=== PATIENT | female | born 1975 | race Caucasian/White ===

== ENCOUNTER → 2020-01-31 15:49 | Outpatient (CLI) | payer OTHER, SELFPAY ==
--- NOTE | ~2020-01-31 | MM_ITS ---
EXAMINATION: MM screening jennifer BI w manjinder HISTORY: Screening TECHNIQUE: Craniocaudal and mediolateral oblique 3-D tomosynthesis images were obtained and synthetic 2-D images were generated. CAD analysis was submitted and interpreted. COMPARISON: Comparison to multiple prior studies sequentially, with oldest reviewed study dated 11/22. BREAST PARENCHYMAL COMPOSITION: The breasts are extremely dense, which lowers the sensitivity of mamm ography. FINDINGS: There are clustered indeterminate calcifications upper aspect of the right breast posterior ly, seen on MLO view only. The left breast is stable without evidence for malignancy. IMPRESSION: 1. Clustered indeterminate right breast calcifications, seen on MLO view only. 2. Magnification views are recommended. BI-RADS Category 0: Incomplete: Needs additional imaging evaluation. Reviewed, dictated and finalized at location A. ER
== END ==
PROVIDERS: PCP Nurse Practitioner Family; Visit Provider Obstetrics & Gynecology
DX: Z12.31 Encounter for screening mammogram for malignant neoplasm of breast (principal); R92.8 Other abnormal and inconclusive findings on diagnostic imaging of breast
CPT/HCPCS: 77063; 77067

== ENCOUNTER → 2020-02-27 10:05 | Outpatient (CLI) | payer OTHER, SELFPAY ==
--- NOTE | ~2020-02-27 | MM_ITS ---
EXAMINATION: MM diagnostic mammo unilat RT HISTORY: Indeterminate right breast calcifications on screening mammogram TECHNIQUE: Additional images of the right breast were performed. CAD analysis was submitted and inter preted. COMPARISON: 01/31/2020, 01/08/2019,01/04/2018, 12/17/2016 FINDINGS: There are grouped, punctate calcifications in the posterior third of the breast at the 12:0 0 location 7 cm from the nipple which appear to be round in morphology. No suspicious mass or archite ctural distortion are identified. IMPRESSION: 1. Probably benign right breast calcifications. 2. Recommend 6 month follow-up right diagnostic mammogram BI-RADS category 3, probably benign findings. Reviewed, dictated and finalized at location A. SH PRODUCTION MANAGER
== END ==
PROVIDERS: Visit Provider Obstetrics & Gynecology
DX: R92.8 Other abnormal and inconclusive findings on diagnostic imaging of breast (principal)
CPT/HCPCS: 77065

== ENCOUNTER → 2020-09-08 08:55 | Outpatient (CLI) | payer OTHER, SELFPAY ==
--- NOTE | ~2020-09-08 | MM_ITS ---
EXAMINATION: MM diagnostic jennifer RT w manjinder HISTORY: Follow-up right breast calcifications TECHNIQUE: Additional 3-D tomosynthesis images of the right breast in were performed and synthetic 2- D images were generated. CAD analysis was submitted and interpreted. COMPARISON: Comparison to multiple prior studies sequentially, with oldest reviewed study dated 11/22. BREAST PARENCHYMAL COMPOSITION: The breasts are extremely dense, which lowers the sensitivity of mamm ography. FINDINGS: There are clustered indeterminate calcifications in the upper central aspect of the right b reast posteriorly which are slightly increased in number and density allowing for differences of tech nique. There are no discrete masses or architectural distortion. IMPRESSION: 1. Clustered indeterminate right breast calcifications, upper central aspect of the right breast post eriorly. 2. Stereotactic right breast biopsy recommended. BI-RADS category 4, suspicious findings. Reviewed, dictated and finalized at location A. IMPRESSION: 1. Clustered indeterminate right breast calcifications, upper central aspect of the right breast posteriorly. 2. Stereotactic right breast biopsy recommended. BI-RADS category 4, suspicious findings.
== END ==
PROVIDERS: Visit Provider Obstetrics & Gynecology
DX: R92.8 Other abnormal and inconclusive findings on diagnostic imaging of breast (principal)
CPT/HCPCS: 77061; 77065; G0279

== ENCOUNTER 2020-09-26 15:56 | Emergency (ER) | payer OTHER, SELFPAY ==
[2020-09-26 16:08] VITALS: BP 150/107; PULSE 91; RESP 16; TEMP 37.3; O2SAT 100
--- NOTE | 2020-09-26 16:24 | PC.NURSE ---
Pt is supposed to take Lisinopril 5mg Qd, has not been on for 4 months because she need to be seen before PCP will refill her Rx.
--- NOTE | 2020-09-26 17:22 | ED.WOUNDLAC ---
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 She cut her finger on a piece of glass in the sink as she was washing dishes. She is up-to-date on her tetanus vaccine and currently rates her pain 5/10. She has tried no [id number] interventions prior to arrival. Related Data Home Medications Medication Instructions Recorded Confirmed levonorgestrel [Mirena] 1 insert INTRAUTERINE ONCE 09/26/20 09/26/20 Allergies Allergy/AdvReac Type Severity Reaction Status Date / Time No Known Allergies Allergy Mild Verified 09/26/20 16:23 Review of Systems Review of Systems: CONSTITUTIONAL: Denies body aches, fever, chills, or sweats. EYES: Denies visual changes, redness, or discharge. ENT: Denies rhinorrhea, congestion, sore throat, or otalgia. CARDIOVASCULAR: Denies chest pain, palpitations, or edema. RESPIRATORY: Denies cough or dyspnea. GASTROINTESTINAL: Denies abdominal pain, nausea, vomiting, or diarrhea. GENITOURINARY: Denies dysuria or hematuria. SKIN: Denies rash, itching. + Left second finger laceration MUSCULOSKELETAL: Denies back pain, joint pain, or myalgia. NEUROLOGIC: Denies headache, numbness, tingling, or weakness. PSYCH: Denies depression or anxiety. [facility] Past Medical History Medical History (Updated 09/26/20 @ 17:34 by Kathleen Zamora, [facility], ) Hypertension Social History Social History Gender identity (if verbalized by the patient): Female Comments At time of signature, I have reviewed and agree with nursing past medical, surgical, social and family history unless otherwise noted. Please see nursing chart for further information. There is no relevant family history pertinent to the presenting complaint Exam Narrative: GENERAL: Well-appearing, well-nourished, and in no acute distress. HEAD: Normocephalic, atraumatic. EYES: EOMI. No redness or drainage. Conjunctivae normal. ENT: Mucous membranes pink and moist. NECK: Normal AROM. CHEST: No respiratory distress. EXTREMITIES: Left second finger: 2 cm full-thickness linear laceration to the dorsum of the finger, overlying the DIP. Full range of motion of the finger against resistance. Distal sensation intact. Capillary refill normal. SKIN: Warm, dry, no rash. Capillary refill normal. Normal skin turgor. NEURO: No focal deficits. Alert and oriented x3. Gait steady. PSYCH: Normal affect. No signs of depression or anxiety. Course Vital Signs Vital signs: Vital Signs Temperature 99.1 F 09/26/20 16:08 Pulse Rate 91 09/26/20 16:08 Respiratory Rate 16 09/26/20 16:08 Blood Pressure 150/107 H 09/26/20 16:08 Pulse Oximetry 100 09/26/20 16:08 Temperature 99.1 F 09/26/20 16:08 Pulse Rate 91 09/26/20 16:08 Respiratory Rate 16 09/26/20 16:08 Blood Pressure 150/107 H 09/26/20 16:08 Pulse Oximetry 100 09/26/20 16:08 Reviewed. Pt has been instructed to follow up with her PCP regarding her elevated blood pressure today. Procedures Laceration Laceration 1: Date: 09/26/20 Time: 17:23 Site: hand Side (If applicable): left Size (cm): 2 Description: linear Depth: simple, single layer Local Anesthetic: lidocaine 1% Amount of anesthesia used (mL): 2 Pre-repair: wound explored ====== Skin Level ====== Skin layer closed with: nylon Size (cm): 5-0 Number of sutures: 4 Technique: simple, interrupted ====== Subcutaneous Layer ====== ====== Muscle Layer ====== ====== Tendon Layer ====== Dressing: Splint and norma
== END 2020-09-26 17:38 | disposition home or self-care (01) ==
PROVIDERS: Emergency Provider Nurse Practitioner; PCP Nurse Practitioner Family
DX: S61.211A Laceration without foreign body of left index finger without damage to nail, initial encounter (principal); I10 Essential (primary) hypertension
CPT/HCPCS: 12001; 99212; G0463

== ENCOUNTER 2020-10-05 15:37 | Emergency (ER) | payer OTHER, SELFPAY ==
[2020-10-05 15:45] VITALS: BP 130/114; PULSE 74; RESP 16; TEMP 37.3; O2SAT 99
--- NOTE | 2020-10-05 15:53 | PC.NURSE ---
stated has appt. with pmd. has not had bp med. since june.
--- NOTE | 2020-10-05 16:01 | ED.WOUNDLAC ---
HPI - Wound/Laceration General Chief Complaint: Wound/Laceration Stated Complaint: Suture Removal,Ear Pain Time Seen by Provider: 10/05/20 16:01 Source: patient, RN notes reviewed and old records reviewed Mode of arrival: ambulatory Limitations: no limitations History of Present Illness HPI narrative: 45 year old female who presents to express care with complaints of some pain to her right ear which started yesterday. She is also her today in clinic to have sutures removed from her left dorsal index finger which were placed in this clinic on the of this month. Wound is well approximated with no gaping or any redness of wound, 4 sutures present.Patient also has history of hypertension with blood pressure elevated states that she is out of her blood pressure medication and can not get refilled till sees doctor in October Related Data Home Medications Medication Instructions Recorded Confirmed levonorgestrel [Mirena] 1 insert INTRAUTERINE ONCE 09/26/20 09/26/20 lisinopril 10/05/20 Allergies Allergy/AdvReac Type Severity Reaction Status Date / Time No Known Allergies Allergy Mild Verified 09/26/20 16:23 Review of Systems Review of Systems: CONSTITUTIONAL: Denies fever, chills, or sweats. EYES: Denies visual changes, redness, or discharge. ENT: Denies rhinorrhea, congestion, sore throat, positive for right eye otalgia. CARDIOVASCULAR: Denies chest pain, palpitations, or edema. RESPIRATORY: Denies cough or dyspnea. GASTROINTESTINAL: Denies abdominal pain, nausea, vomiting, or diarrhea. GENITOURINARY: Denies dysuria or hematuria. SKIN: Denies rash or itching.healed laceration to the dorsal aspect of left index finger. MUSCULOSKELETAL: Denies back pain, joint pain, or myalgia. NEUROLOGIC: Denies headache, numbness, or weakness. PSYCHIATRIC: Denies anxiety or depression. All systems reviewed & are unremarkable except as noted in HPI and below PMFSH Past Medical History Medical History (Updated 10/07/20 @ 19:56 by Radha Roberts NP) Hypertension Wears hearing aid in both ears Surgical History Surgical History (Updated 10/07/20 @ 19:47 by Radha Roberts NP) History of ear surgery X3 for her hearing loss Family History Family History (Updated 10/07/20 @ 19:48 by Radha Roberts NP) Mother Arthritis Hepatitis Sibling Hepatitis Social History Social History (Updated 10/07/20 @ 19:48 by Radha Roberts NP) Smoking status: Never smoker Alcohol intake: never Substance use: never Living arrangements: with family Gender identity (if verbalized by the patient): Female Comments At time of signature, agree with nursing past medical, surgical, social and family history. There is no relevant family history pertinent to the presenting complaint Exam Narrative: GENERAL: Well-appearing, well-nourished, and in no acute distress. HEAD: Normocephalic, atraumatic. EYES: PERRLA and EOMI. ENT: Nares clear, no rhinorrhea or epistaxis. Mucous membranes moist.Right TM normal with dull light reflex with ear canal red and irritated, Left Tm normal with dull light reflex, Throat pink with no lesions or exudates, no tonsil enlargement NECK: Supple.no lymphadenopathy CHEST: Clear to auscultation. No respiratory distress.SAO2 99% on room air HEART: Regular rate and rhythm. No murmur heard. Normal peripheral pulses. ABDOMEN: Soft, nontender, nondistended, normal active bowel sounds. EXTREMITIES: Normal range of motion. No edema. SKIN: Warm, dry, no rash.healed laceration to left dorsal index finger [address], to be removed see procedure note NEURO: No focal deficits. Alert and oriented x3. Course Vital Signs Vital signs: Vital Signs Temperature 37.3 C 10/05/20 15:45 Pulse Rate 74 10/05/20 15:45 Respiratory Rate 16 10/05/20 15:45 Blood Pressure 130/114 H 10/05/20 15:45 Pulse Oximetry 99 10/05/20 15:45 Temperature 37.3 C 10/05/20 15:45 Pulse Rate 74 10/05/20 15:4
[2020-10-05 16:32] VITALS: BP 148/103
--- NOTE | 2020-10-05 16:44 | PC.NURSE ---
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
== END 2020-10-05 16:32 | disposition home or self-care (01) ==
PROVIDERS: Emergency Provider Registered Nurse; PCP Nurse Practitioner Family
DX: H60.501 Unspecified acute noninfective otitis externa, right ear (principal); S61.211D Laceration without foreign body of left index finger without damage to nail, subsequent encounter; X58.XXXD Exposure to other specified factors, subsequent encounter; I10 Essential (primary) hypertension
CPT/HCPCS: 99213; G0463

== ENCOUNTER 2022-01-23 10:51 | Emergency (ER) | payer OTHER, SELFPAY ==
--- NOTE | ~2022-01-23 | XR_ITS ---
XR finger 3rd LT min 2V 01/23/2022 11:54 Indication: Laceration to left third distal phalanx. Procedure: 3 views left third finger Comparison: No prior studies for comparison. Findings: There is an overlying gauze superimposed on the distal phalanx. No fracture or traumatic ma lalignment is seen. No foreign bodies. Impression: 1: No acute fracture. Reviewed, dictated and finalized at location A. ORATE GENERAL MANAGER Impression: 1: No acute fracture.
[2022-01-23 11:15] VITALS: BP 139/85; PULSE 103; RESP 18; TEMP 36.4; O2SAT 100
--- NOTE | 2022-01-23 12:26 | ED.GENADULT ---
HPI - General Adult General Chief complaint: Wound/Laceration Stated complaint: finger tip laceration Time Seen by Provider: 01/23/22 11:55 History of Present Illness HPI narrative: 46-year-old female presenting to the emergency department for laceration to the tip of her left middle finger. 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 Patient is not on any blood thinners. Patient denies any other injuries. Related Data Home Medications Medication Instructions Recorded Confirmed levonorgestrel 20 mcg/24 hours (8 1 insert intrauterine ONCE 09/26/20 09/26/20 yrs) 52 mg intrauterine device (Mirena) lisinopril 5 mg tablet 10/05/20 Allergies Allergy/AdvReac Type Severity Reaction Status Date / Time No Known Allergies Allergy Mild Verified 01/23/22 11:15 Review of Systems Review of Systems: CONSTITUTIONAL: Denies fever, chills, or sweats. EYES: Denies visual changes, redness, or discharge. ENT: Denies rhinorrhea, congestion, sore throat, or otalgia. CARDIOVASCULAR: Denies chest pain, palpitations, or edema. RESPIRATORY: Denies cough or dyspnea. GASTROINTESTINAL: Denies abdominal pain, nausea, vomiting, or diarrhea. GENITOURINARY: Denies dysuria or hematuria. SKIN: See HPI MUSCULOSKELETAL: Denies back pain, joint pain, or myalgia. NEUROLOGIC: Denies headache, numbness, or weakness. PMFSH Past Medical History Medical History (Updated 01/23/22 @ 12:33 by Sg Zhu MD) Hypertension Wears hearing aid in both ears Surgical History Surgical History (Updated 10/07/20 @ 19:47 by Radha Roberts NP) History of ear surgery X3 for her hearing loss Family History Family History (Updated 10/07/20 @ 19:48 by Radha Roberts NP) Mother Arthritis Hepatitis Sibling Hepatitis Social History Social History (Updated 10/07/20 @ 19:48 by Radha Roberts NP) Smoking status: Never smoker Alcohol intake: never Substance use: never Gender identity (if verbalized by the patient): Female Exam Narrative: APPEARANCE: Well appearing, no pain, no distress, well-nourished. HEAD: normocephalic, atraumatic. EYES: PERRLA/EOMI, conjunctivae clear. NOSE: Normal no drainage NECK: Supple. No adenopathy, no masses. RESPIRATORY: Airway patent, respirations nonlabored. Clear to auscultation bilaterally, no rales, rhonchi, wheezing. CARDIOVASCULAR: Regular rate and rhythm without murmurs rubs or gallops. ABDOMINAL: Soft, nontender, nondistended, normal bowel sounds MUSCULOSKELETAL: Moves all extremities. Strength/ROM intact, No edema, No calf tenderness. NEURO: Alert. Cranial nerves II through XII intact. Good gait. Good coordination SKIN: 2 cm diameter circular avulsion to tip of left little finger. No bone is exposed. Bleeding is controlled. Course Course Emergency Course: Patient does have an avulsion laceration to her left middle finger. Surgicel and bulky dressing was applied. Patient was updated on wound care. Patient states that her tetanus is up-to-date. Vital Signs Vital signs: Vital Signs Temperature 97.6 F 01/23/22 11:15 Pulse Rate 103 H 01/23/22 11:15 Respiratory Rate 18 01/23/22 11:15 Blood Pressure 139/85 01/23/22 11:15 Pulse Oximetry 100 01/23/22 11:15 Temperature 97.6 F 01/23/22 11:15 Pulse Rate 103 H 01/23/22 11:15 Respiratory Rate 18 01/23/22 11:15 Blood Pressure 139/85 01/23/22 11:15 Pulse Oximetry 100 01/23/22 11:15 Medical Decision Making Vital Signs Vital Signs: Vital Signs Temperature 97.6 F 01/23/22 11:15 Pulse Rate 103 H 01/23/22 11:15 Respiratory Rate 18 01/23/22 11:15 Blood Pressure 139/85 01/23/22 11:15 Pulse Oximetry 100 01/23/22 11:15 Temperature 97.6 F 01/23/22 11:15 Pulse Rate 103 H 01/23/22 11:15 Respiratory Rate 18 01/23/22 11:15 Blood Pressure 139/85 01/23/22 11:15 Pulse Oximetr
== END 2022-01-23 12:54 | disposition home or self-care (01) ==
PROVIDERS: Emergency Provider Emergency Medicine; PCP Nurse Practitioner Family
DX: S61.213A Laceration without foreign body of left middle finger without damage to nail, initial encounter (principal); I10 Essential (primary) hypertension; W26.8XXA Contact with other sharp object(s), not elsewhere classified, initial encounter; Y99.0 Civilian activity done for income or pay
CPT/HCPCS: 73140; 99283

== ENCOUNTER → 2022-01-26 16:09 | Outpatient (CLI) | payer OTHER, SELFPAY ==
--- NOTE | ~2022-01-26 | MM_ITS ---
EXAMINATION: MM screening [facility] BI w manjinder HISTORY: Screening mammogram TECHNIQUE: Craniocaudal and mediolateral oblique 3-D tomosynthesis images were obtained and synthetic 2-D images were generated. CAD analysis was submitted and interpreted. COMPARISON: 09/08/2020, 02/27/2020, 01/31/2020 BREAST PARENCHYMAL COMPOSITION: The breasts are extremely dense, which lowers the sensitivity of mamm ography. FINDINGS: Subtle architectural distortion in the upper right breast is seen at the site of prior exci sional biopsy. No suspicious mass, calcification, or architectural distortion are identified in eithe r breast to suggest malignancy. There has been no suspicious interval change. IMPRESSION: 1. No mammographic evidence of malignancy. 2. Recommend routine screening mammography in one year. BI-RADS Category 2: Benign finding(s). Reviewed, dictated and finalized at location A. NESS PROCESS LEAD
== END ==
PROVIDERS: PCP Obstetrics & Gynecology; Visit Provider Obstetrics & Gynecology
DX: Z12.31 Encounter for screening mammogram for malignant neoplasm of breast (principal)
CPT/HCPCS: 77063; 77067

== ENCOUNTER → 2023-01-28 15:43 | Outpatient (CLI) | payer OTHER, SELFPAY ==
--- NOTE | ~2023-01-28 | MM_ITS ---
EXAMINATION: MM screening jennifer BI w manjinder HISTORY: Screening TECHNIQUE: Craniocaudal and mediolateral oblique 3-D tomosynthesis images were obtained and synthetic 2-D images were generated. CAD analysis was submitted and interpreted. COMPARISON: Comparison to multiple prior studies sequentially, with oldest reviewed study dated 12/22. BREAST PARENCHYMAL COMPOSITION: The breasts are extremely dense, which lowers the sensitivity of mamm ography FINDINGS: There is a new focal asymmetry lateral aspect of the left breast on CC view. The right [address] is stable without evidence for malignancy. IMPRESSION: 1. New focal left breast asymmetry laterally on CC view. 2. Additional spot compression and mediolateral views with possible follow-up breast ultrasound recom mended. BI-RADS Category 0: Incomplete: Needs additional imaging evaluation. Reviewed, dictated and finalized at location A. TER'S DEVIL IMPRESSION: 1. New focal left breast asymmetry laterally on CC view. 2. Additional spot compression and mediolateral views with possible follow-up b reast ultrasound recommended. BI-RADS Category 0: Incomplete: Needs additional imaging evaluation.
== END ==
PROVIDERS: PCP Obstetrics & Gynecology; Visit Provider Obstetrics & Gynecology
DX: Z12.31 Encounter for screening mammogram for malignant neoplasm of breast (principal); R92.8 Other abnormal and inconclusive findings on diagnostic imaging of breast
CPT/HCPCS: 77063; 77067

== ENCOUNTER → 2023-02-23 08:43 | Outpatient (CLI) | payer OTHER, SELFPAY ==
--- NOTE | ~2023-02-23 | MM_ITS ---
EXAMINATION: MM diagnostic jennifer LT w manjinder HISTORY: Left breast asymmetry on screening mammogram TECHNIQUE: Additional 3-D tomosynthesis images of the left breast were performed and synthetic 2-D im ages were generated. CAD analysis was submitted and interpreted. COMPARISON: 01/28/2023, 01/26/2022, 01/31/2020, 01/08/2019 FINDINGS: There is a return to baseline fibroglandular appearance with spot compression of the left b reast in the area questioned on screening mammogram. IMPRESSION: 1. No mammographic evidence of malignancy. 2. Recommend routine screening mammography in one year. BI-RADS Category 1: Negative Reviewed, dictated and finalized at location A. L CUT OFF SAW OPERATOR
== END ==
PROVIDERS: PCP Obstetrics & Gynecology; Visit Provider Obstetrics & Gynecology
DX: R92.8 Other abnormal and inconclusive findings on diagnostic imaging of breast (principal)
CPT/HCPCS: 77061; 77065; G0279

== ENCOUNTER 2024-01-31 16:04 | Outpatient (CLI) | payer OTHER, SELFPAY ==
--- NOTE | ~2024-01-31 | MM_ITS ---
EXAMINATION: MM screening jennifer BI w manjinder HISTORY: Screening TECHNIQUE: Craniocaudal and mediolateral oblique 3-D tomosynthesis images were obtained and synthetic 2-D images were generated. CAD analysis was submitted and interpreted. COMPARISON: Comparison to multiple prior studies sequentially, with oldest reviewed study dated 01/21. BREAST PARENCHYMAL COMPOSITION: Dense: The breasts are extremely dense, which lowers the sensitivity of mammography. FINDINGS: There is no evidence of suspicious mass, calcification, or architectural distortion to sugg est malignancy in either breast. There has been no suspicious interval change. IMPRESSION: 1. No mammographic evidence of malignancy. 2. Recommend routine screening mammography in one year. BI-RADS Category 1: Negative Reviewed, dictated and finalized at location B. O MANAGER
== END 2024-01-31 16:05 | disposition home or self-care (01) ==
LOC: MICIMG 16:04
PROVIDERS: PCP Obstetrics & Gynecology; Visit Provider Obstetrics & Gynecology
DX: Z12.31 Encounter for screening mammogram for malignant neoplasm of breast (principal)
CPT/HCPCS: 77063; 77067

== ENCOUNTER 2025-02-11 11:24 | Outpatient (CLI) | payer OTHER, SELFPAY ==
--- NOTE | ~2025-02-11 | MM_ITS ---
EXAMINATION: MM screening jennifer BI w manjinder HISTORY: Screening. Previous benign surgical biopsy on the right. TECHNIQUE: Craniocaudal and mediolateral oblique 3-D tomosynthesis images were obtained and synthetic 2-D images were generated. CAD analysis was submitted and interpreted. COMPARISON: 2023, 2022, and 2021. BREAST PARENCHYMAL COMPOSITION: Dense: The breasts are heterogeneously dense FINDINGS: No suspicious masses are seen. There are no suspicious calcifications. Postop changes are again seen on the right. No unexplained architectural distortion is seen. There are no skin or nipple abnormalities identified. There is no adenopathy seen on the images submitted. IMPRESSION: No mammographic evidence to suggest malignancy is seen. The patient may return to screening mammography as per ACR guidelines. BI-RADS 2 - Benign. Reviewed, dictated and finalized at location A. PLANT ENGINEER
== END 2025-02-11 11:25 | disposition home or self-care (01) ==
LOC: MICIMG 11:24
PROVIDERS: PCP Nurse Practitioner Family; Visit Provider Obstetrics & Gynecology
DX: Z12.31 Encounter for screening mammogram for malignant neoplasm of breast (principal)
CPT/HCPCS: 77063; 77067